=== PATIENT | female | born 2000 | race Two or more races ===

== ENCOUNTER 2019-05-14 01:10 | Emergency (ER) | payer MEDICAID, OTHER, SELFPAY ==
[~2019-05-14] VITALS: Ht 160 cm; Wt 56.7 kg
[2019-05-14] MEDS ORDERED: ACETAMINOPHEN 500 MG TABLET PO ONE (01:30)
[2019-05-14 01:45] LABS: BASOPHILS # (AUTO) 0.04 x10^3/uL (0-0.3); BASOPHILS % (AUTO) 1 % (0-1); EOSINOPHILS % (AUTO) 3 % (1-7); LYMPHOCYTES # (AUTO) 3.12 x10^3/uL (1-6.1); LYMPHOCYTES % (AUTO) 42 % (22-44); MD NO; MEAN CORPUSCULAR HEMOGLOBIN 31.5 pg (27.0-34.8); MEAN CORPUSCULAR HGB CONC 33.8 g/dL (32.4-35.8); MEAN CORPUSCULAR VOLUME 93.2 fL (80-100); MEAN PLATELET VOLUME 7.1 fL (7.4-10.4); MONOCYTES # (AUTO) 0.34 x10^3/uL (0-1.4); MONOCYTES % (AUTO) 5 % (2-9); NEUTROPHILS # (AUTO) 3.65 x10^3/uL (1.8-8.0); NEUTROPHILS % (AUTO) 50 % (42-75); PLATELET COUNT 330 x10^3/uL (130-400); RED BLOOD COUNT 4.75 x10^6/uL (3.82-5.3); RED CELL DISTRIBUTION WIDTH 12.3 % (9.6-15.2)
[2019-05-14 01:57] LABS: ALANINE AMINOTRANSFERASE 16 U/L (12-78); ALBUMIN 4.1 g/dL (3.4-5.0); ANION GAP 9 mmol/L (5-15); CALCIUM 8.8 mg/dL (8.5-10.1); CHLORIDE 107 mmol/L (98-107); CREATININE 0.79 mg/dL (0.55-1.02)
[2019-05-14 02:02] LABS: ALKALINE PHOSPHATASE 82 U/L (45-117); BILIRUBIN,TOTAL 0.6 mg/dL (0.2-1.0); TOTAL PROTEIN 7.3 g/dL (6.4-8.2)
[2019-05-14] MEDS ORDERED: ACETAMINOPHEN 500 MG TABLET ONE (02:02)
[2019-05-14 02:23] LABS: MICROSCOPIC AUTO
[2019-05-14 02:31] LABS: CULTURE INDICATED? YES
[2019-05-14 03:10] VITALS: BP 102/64
== END 2019-05-14 03:12 | disposition home or self-care (01) ==
LOC: ED 03:05
DX: R10.32 Left lower quadrant pain (principal); R10.31 Right lower quadrant pain
CPT/HCPCS: 36415; 76830; 80053; 81001; 84703; 85025; 87077; 87086; 99284